=== PATIENT | male | born 1990 | race Caucasian/White ===

== ENCOUNTER 2023-01-31 10:11 | Emergency (ER) | payer MEDICAID, OTHER ==
[~2023-01-31] VITALS: Ht 170.2 cm; Wt 92.1 kg
[~2023-01-31 10:11] MED LIST: OMEP40EC24 PO; ONDA8TAB87 PO
[2023-01-31 10:20] VITALS: BP 131/82; PULSE 85; RESP 18; TEMP 98; O2SAT 98
[2023-01-31] MEDS ORDERED: MECLIZINE 25 MG TAB PO ONE (10:40)
--- NOTE | 2023-01-31 10:46 | NUR ---
32YO PRESENTS W/DIZZINESS AND SENSITIVITY TO LIGHT SINCE THIS AM WHILE WATCHING TV. PT STATES HE FEELS HES SPINNING. DENIES N,V,D, FEVER, CHILLS, FLU SYMPTOMS, CHAMBERS, INJURY. NAD NOTED, SAFETY MAINTAINED. CALL LIGHT IN REACH.
[2023-01-31 11:07] LABS: BASOPHILS # (AUTO) 0.1 K/uL (0.00-0.22); BASOPHILS % (AUTO) 0.9 % (0.0-2.0); EOSINOPHILS # (AUTO) 0.2 K/uL (0-0.4); EOSINOPHILS % (AUTO) 1.3 % (0.0-4.0); HEMATOCRIT 44.8 % (36-52); HEMOGLOBIN 15.2 g/dL (12.0-18.0); LYMPHOCYTES # (AUTO) 2.6 K/uL (2.0-11.5); LYMPHOCYTES % (AUTO) 21.8 % (20.5-51.1); MEAN CORPUSCULAR HEMOGLOBIN 31 pg (27-31); MEAN CORPUSCULAR HGB CONC 34 g/dL (33-37); MEAN CORPUSCULAR VOLUME 89.7 fL (80-94); MONOCYTES # (AUTO) 0.7 K/uL (0.8-1.0); MONOCYTES % (AUTO) 6.1 % (1.7-9.3); NEUTROPHILS # (AUTO) 8.2 K/uL (1.8-7.7); NEUTROPHILS % (AUTO) 69.9 % (42.2-75.2); PLATELET COUNT (AUTO) 375 K/uL (140-450); RED BLOOD CELL COUNT(AUTO) 4.99 MIL/uL (4.20-6.10); RED CELL DISTRIBUTION WIDTH 12.8 % (11.6-13.7); WHITE BLOOD COUNT (AUTO) 11.8 K/uL (4.8-10.8)
[2023-01-31 11:20] LABS: ALBUMIN 4.4 g/dL (3.4-5.0); ANION GAP 14.9 (8-16); CARBON DIOXIDE 26.8 mmol/L (21-32); CREATININE 0.9 mg/dL (0.6-1.3); POTASSIUM 4.7 mmol/L (3.5-5.1); TOTAL BILIRUBIN 0.3 mg/dL (0.0-1.0)
[2023-01-31] MEDS ORDERED: MECL-303 PO (11:30)
[2023-01-31 11:44] VITALS: BP 126/78; PULSE 72; RESP 15; TEMP 98.1; O2SAT 98
--- NOTE | 2023-01-31 11:44 | NUR ---
Patient discharged with v/s stable. Written and verbal after care instructions given and explained. Patient alert, oriented and verbalized understanding of instructions. Ambulatory with steady gait. All questions addressed prior to discharge. ID band removed. Patient advised to follow up with PMD. Rx of ANTIVERT given. Opportunity to ask questions provided and answered.
== END 2023-01-31 11:44 | disposition home or self-care (01) ==
LOC: MED 10:11
DX: R42 Dizziness and giddiness (principal); R11.0 Nausea; F41.9 Anxiety disorder, unspecified; Z79.899 Other long term (current) drug therapy
CPT/HCPCS: 36415; 80053; 82948; 85025; 93005; 99284; J8597

== ENCOUNTER 2023-10-08 11:24 | Emergency (ER) | payer OTHER ==
[~2023-10-08] VITALS: Ht 172.7 cm; Wt 90.7 kg
[~2023-10-08 11:24] MED LIST changes: +MECL-303 PO
[2023-10-08 11:27] VITALS: BP 132/84; PULSE 95; TEMP 98; O2SAT 100
[2023-10-08] MEDS: KETOROLAC 30 MG/ML VIAL IM ONE (13:06)
[2023-10-08] MEDS ORDERED: NAPR-54 PO (13:28)
== END 2023-10-08 13:48 | disposition home or self-care (01) ==
LOC: MED 11:24
DX: S93.401A Sprain of unspecified ligament of right ankle, initial encounter (principal); Z79.1 Long term (current) use of non-steroidal anti-inflammatories (NSAID); Z79.899 Other long term (current) drug therapy; W01.0XXA Fall on same level from slipping, tripping and stumbling without subsequent striking against object, initial encounter; Y93.89 Activity, other specified; Y92.89 Other specified places as the place of occurrence of the external cause; Y99.8 Other external cause status
CPT/HCPCS: 73610; 96372; 99283; J1885